=== PATIENT | female | born 1990 | race Native Hawaiian/Other Pacific Islander ===

== ENCOUNTER 2019-04-01 10:00 | Inpatient (IN) | payer MEDICAID ==
[~2019-04-01] VITALS: Ht 167.6 cm; Wt 78.0 kg
[2019-04-01] MEDS ORDERED: GABA-533 PO (10:07)
[2019-04-01] MEDS ORDERED: INSU100I24 SQ (10:07)
[2019-04-01] MEDS ORDERED: INSU100V SQ (10:07)
[2019-04-01 10:09] LABS: GLUCOSE,POINT OF CARE 152 MG/DL (70-110)
[2019-04-01 11:09] LABS: BASOPHILS % (AUTO) 0.4 % (0.0-2.0); EOSINOPHILS % (AUTO) 0.4 % (1.0-6.0); HEMATOCRIT 39.6 % (36-46); HEMOGLOBIN 12.9 g/dL (12.0-16.0); LYMPHOCYTES # (AUTO) 1.2 K/uL (1.0-4.8); LYMPHOCYTES % (AUTO) 19.5 % (22.0-44.0); MEAN CORPUSCULAR HEMOGLOBIN 25.3 pg (26.0-34.0); MEAN CORPUSCULAR HGB CONC 32.6 G/dL (31.0-37.0); MEAN CORPUSCULAR VOLUME 78 fL (80-100); MONOCYTES # (AUTO) 0.3 K/uL (0.1-1.0); MONOCYTES % (AUTO) 4.9 % (2.0-9.0); NEUTROPHILS # (AUTO) 4.5 K/uL (1.8-7.7); NEUTROPHILS % (AUTO) 74.8 % (40.0-70.0); PLATELET COUNT (AUTO) 173 K/uL (150-450); RED BLOOD CELL COUNT(AUTO) 5.09 MIL/uL (4.00-5.20); RED CELL DISTRIBUTION WIDTH 18.1 % (11.5-14.5)
[2019-04-01 11:15] LABS: ANION GAP 15 mmol/L (8-16); CALCIUM, TOTAL 9.4 mg/dL (8.8-10.5); CARBON DIOXIDE 19 mmol/L (22-29); CHLORIDE 100 mmol/L (98-107); CREATININE 0.94 mg/dL (0.60-1.30); GLOMERULAR FILTR. RATE CALC > 60 mL/min (>60); GLUCOSE,RANDOM 174 mg/dL (70-110); POTASSIUM 3.8 mmol/L (3.5-5.1); SODIUM SERUM 134 mmol/L (136-145); UREA NITROGEN, BLOOD 13 mg/dL (7-18)
[2019-04-01 11:27] LABS: ALANINE AMINOTRANSFERASE 25 U/L (12-78); ALBUMIN 3.6 g/dL (3.4-5.0); ALKALINE PHOSPHATASE 90 U/L (46-116); ASPARTATE AMINOTRANSFERASE 18 U/L (15-37); BILIRUBIN,TOTAL 0.3 mg/dL (0.1-1.0); HCG,QUANTITATIVE < 1 mIU/mL (0-6); LIPASE 45 U/L (73-393); TOTAL PROTEIN, SERUM 7.7 g/dL (6.4-8.2)
[2019-04-01] MEDS ORDERED: METOCLOPRAMIDE HCL 5 MG/ML 2 ML VIAL IVP ONE ×2 (11:30→17:45)
[2019-04-01] MEDS ORDERED: SODIUM CHLORIDE 0.9% 1,000 ML IV ONE ×2 (11:30→14:45)
[2019-04-01] MEDS ORDERED: HYOSCYAMINE SULFATE 0.125 MG TAB PO ONE (11:45)
[2019-04-01] MEDS ORDERED: ONDANSETRON HCL 4 MG/2 ML VIAL IVP ONE ×2 (11:45→14:45)
[2019-04-01] MEDS ORDERED: MORPHINE SULFATE 4 MG/ML SYRINGE IVP ONE ×2 (11:45→14:45)
[2019-04-01] MEDS ORDERED: BARIUM SULFATE 0.1% SUSPENSION 450 ML BOTTLE PO ONE (14:45)
[2019-04-01 15:09] LABS: GLUCOSE,POINT OF CARE 199 MG/DL (70-110)
[2019-04-01] MEDS ORDERED: SODIUM CHLORIDE 0.9% 100 ML ONE (15:13)
[2019-04-01] MEDS ORDERED: IOVERSOL 320 MG/ML 100 ML VIAL ONE (15:13)
[2019-04-01] MEDS ORDERED: ONDANSETRON HCL 4 MG/2 ML VIAL IVP PRN ×2 (17:45→21:00)
[2019-04-01] MEDS ORDERED: 0.9% SODIUM CHLORIDE 10 ML SYRINGE IVP PRN (17:45)
[2019-04-01] MEDS ORDERED: ACETAMINOPHEN 325 MG TABLET PO PRN ×2 (17:45→21:00)
[2019-04-01] MEDS ORDERED: HYDROmorphone 2 MG/ML SYRINGE IVP ONE (17:45)
[2019-04-01 18:49] VITALS: BP 115/66
[2019-04-01 20:07] VITALS: BP 119/76
[2019-04-01] MEDS ORDERED: ZOLPIDEM TARTRATE 5 MG TABLET PO PRN (21:00)
[2019-04-01] MEDS: DOCUSATE SODIUM 100 MG CAPSULE PO SCH (21:00)
[2019-04-01] MEDS ORDERED: IPRATROPIUM BROMIDE 0.5 MG/2.5 ML NEB SOLUTION NEB PRN (21:00)
[2019-04-01] MEDS ORDERED: INSULIN LISPRO 100 UNITS/ML SQ PRN (21:00)
[2019-04-01] MEDS ORDERED: ALBUTEROL SULFATE 2.5 MG/0.5 ML NEB SOLUTION NEB PRN (21:00)
[2019-04-01] MEDS ORDERED: HYDROCODONE/ACETAMINOPHEN 5-325 MG TABLET PO PRN (21:00)
[2019-04-01] MEDS ORDERED: MAGNESIUM HYDROXIDE SUSPENSION 30 ML UDCUP PO PRN (21:00)
[2019-04-01] MEDS ORDERED: DEXTROSE 50%-WATER 25 GM/50 ML SYRINGE IVP PRN (21:00)
[2019-04-01] MEDS ORDERED: SODIUM CHLORIDE 0.9% 1,000 ML IV SCH (21:00)
[2019-04-01] MEDS ORDERED: BISACODYL 10 MG RECTAL RECTAL SUPPOSITORY PR PRN (21:00)
[2019-04-01] MEDS: DiphenhydrAMINE HCL 50 MG/ML VIAL IVP PRN (21:23)
[2019-04-01] MEDS: MORPHINE SULFATE 2 MG/ML SYRINGE IVP PRN (21:23)
[2019-04-01] MEDS: SODIUM CHLORIDE 0.9% 1,000 ML IV SCH (21:23)
[2019-04-01 21:33] LABS: GLUCOMETER DEV NAME(LOC) 5N.2; GLUCOSE,POINT OF CARE 217 MG/DL (70-110)
[2019-04-01 22:47] LABS: ANION GAP 18 mmol/L (8-16); CALCIUM, TOTAL 8.5 mg/dL (8.8-10.5); CARBON DIOXIDE 18 mmol/L (22-29); CHLORIDE 104 mmol/L (98-107); CREATININE 0.85 mg/dL (0.60-1.30); GLOMERULAR FILTR. RATE CALC > 60 mL/min (>60); GLUCOSE,RANDOM 191 mg/dL (70-110); PHOSPHORUS 2.5 mg/dL (2.5-4.9); POTASSIUM 3.8 mmol/L (3.5-5.1); SODIUM SERUM 140 mmol/L (136-145)
[2019-04-01 23:00] LABS: UREA NITROGEN, BLOOD 8 mg/dL (7-18)
[2019-04-01] MEDS: HEPARIN SODIUM,PORCINE 5,000 UNITS/ML VIAL SQ SCH (23:47)
[2019-04-01 23:51] VITALS: BP 120/78
[2019-04-02] MEDS ORDERED: MAGNESIUM SULFATE 4 GM/WATER 100 ML IV PRN
[2019-04-02] MEDS ORDERED: POTASSIUM CHLORIDE 20 MEQ ER TABLET PO PRN
[2019-04-02] MEDS ORDERED: MAGNESIUM OXIDE 400 MG TABLET PO PRN
[2019-04-02] MEDS ORDERED: DEXTROSE 50%-WATER 25 GM/50 ML SYRINGE IVP PRN
[2019-04-02] MEDS ORDERED: MAGNESIUM SULFATE 2 GM/WATER 50 ML IV PRN
[2019-04-02 00:04] LABS: GLUCOMETER DEV NAME(LOC) 5N.2; GLUCOSE,POINT OF CARE 159 MG/DL (70-110)
[2019-04-02] MEDS: MORPHINE SULFATE 2 MG/ML SYRINGE IVP PRN ×7 (00:07→21:44)
[2019-04-02] MEDS: INSULIN LISPRO 100 UNITS/ML SQ PRN ×3 (00:08→17:55)
[2019-04-02 00:29] LABS: ALBUMIN 3.4 g/dL (3.4-5.0)
[2019-04-02] MEDS: ONDANSETRON HCL 4 MG/2 ML VIAL IVP PRN ×4 (01:51→14:10)
[2019-04-02] MEDS: DiphenhydrAMINE HCL 50 MG/ML VIAL IVP PRN ×4 (01:52→14:10)
[2019-04-02] MEDS: SODIUM CHLORIDE 0.9% 1,000 ML IV SCH ×4 (03:18→18:03)
[2019-04-02 05:27] VITALS: BP 123/76
[2019-04-02 06:18] LABS: ANION GAP 18 mmol/L (8-16); CALCIUM, TOTAL 8.5 mg/dL (8.8-10.5); CARBON DIOXIDE 18 mmol/L (22-29); CHLORIDE 103 mmol/L (98-107); CREATININE 0.81 mg/dL (0.60-1.30); GLOMERULAR FILTR. RATE CALC > 60 mL/min (>60); GLUCOSE,RANDOM 138 mg/dL (70-110); POTASSIUM 3.1 mmol/L (3.5-5.1); SODIUM SERUM 139 mmol/L (136-145); UREA NITROGEN, BLOOD 7 mg/dL (7-18)
[2019-04-02 07:10] LABS: GLUCOMETER DEV NAME(LOC) 5N.2; GLUCOSE,POINT OF CARE 109 MG/DL (70-110)
[2019-04-02 07:37] VITALS: BP 132/82
[2019-04-02] MEDS: GABAPENTIN 400 MG CAPSULE PO SCH ×3 (07:59→21:04)
[2019-04-02] MEDS: HEPARIN SODIUM,PORCINE 5,000 UNITS/ML VIAL SQ SCH ×3 (07:59→23:45)
[2019-04-02] MEDS: DOCUSATE SODIUM 100 MG CAPSULE PO SCH ×2 (07:59→21:03)
[2019-04-02] MEDS ORDERED: INSULIN DEGLUDEC SQ SCH (09:00)
[2019-04-02] MEDS ORDERED: METOCLOPRAMIDE HCL 5 MG/ML 2 ML VIAL IVP PRN (09:15)
[2019-04-02] MEDS: MetroNIDAZOLE 500 MG/NACL 100 ML IV SCH ×2 (11:08→16:38)
[2019-04-02] MEDS: POTASSIUM CHL 10 MEQ/WATER 50 ML IV PRN ×3 (11:08→13:46)
[2019-04-02] MEDS: CefTRIAXone 1 GM/DEXTROSE 50 ML IV SCH (11:08)
[2019-04-02] MEDS: METOCLOPRAMIDE HCL 5 MG/ML 2 ML VIAL IVP SCH ×3 (11:35→23:45)
[2019-04-02 11:50] VITALS: BP 161/108
[2019-04-02 12:29] LABS: GLUCOMETER DEV NAME(LOC) 5N.2; GLUCOSE,POINT OF CARE 337 MG/DL (70-110)
[2019-04-02 15:19] LABS: ANION GAP 15 mmol/L (8-16); CALCIUM, TOTAL 7.9 mg/dL (8.8-10.5); CARBON DIOXIDE 17 mmol/L (22-29); CHLORIDE 106 mmol/L (98-107); CREATININE 0.77 mg/dL (0.60-1.30); GLOMERULAR FILTR. RATE CALC > 60 mL/min (>60); GLUCOSE,RANDOM 183 mg/dL (70-110); POTASSIUM 3.5 mmol/L (3.5-5.1); SODIUM SERUM 138 mmol/L (136-145); UREA NITROGEN, BLOOD 6 mg/dL (7-18)
[2019-04-02 15:55] VITALS: BP 125/76
[2019-04-02 20:18] VITALS: BP 109/72
[2019-04-03 00:14] VITALS: BP 127/88
[2019-04-03] MEDS: MORPHINE SULFATE 2 MG/ML SYRINGE IVP PRN ×5 (01:49→20:28)
[2019-04-03] MEDS: MetroNIDAZOLE 500 MG/NACL 100 ML IV SCH ×3 (01:49→17:19)
[2019-04-03] MEDS: SODIUM CHLORIDE 0.9% 1,000 ML IV SCH ×4 (01:51→21:06)
[2019-04-03] MEDS: INSULIN LISPRO 100 UNITS/ML SQ PRN ×4 (01:51→21:52)
[2019-04-03 05:37] VITALS: BP 105/58
[2019-04-03] MEDS: METOCLOPRAMIDE HCL 5 MG/ML 2 ML VIAL IVP SCH ×4 (06:19→23:23)
[2019-04-03 06:44] LABS: BASOPHILS % (AUTO) 0.9 % (0.0-2.0); EOSINOPHILS % (AUTO) 0.7 % (1.0-6.0); HEMATOCRIT 32.8 % (36-46); HEMOGLOBIN 10.5 g/dL (12.0-16.0); LYMPHOCYTES # (AUTO) 1.9 K/uL (1.0-4.8); LYMPHOCYTES % (AUTO) 43.3 % (22.0-44.0); MEAN CORPUSCULAR HEMOGLOBIN 25.2 pg (26.0-34.0); MEAN CORPUSCULAR HGB CONC 32.1 G/dL (31.0-37.0); MEAN CORPUSCULAR VOLUME 79 fL (80-100); MONOCYTES # (AUTO) 0.4 K/uL (0.1-1.0); MONOCYTES % (AUTO) 9.3 % (2.0-9.0); NEUTROPHILS % (AUTO) 45.8 % (40.0-70.0); PLATELET COUNT (AUTO) 174 K/uL (150-450); RED BLOOD CELL COUNT(AUTO) 4.18 MIL/uL (4.00-5.20); RED CELL DISTRIBUTION WIDTH 18.8 % (11.5-14.5)
[2019-04-03 07:01] LABS: % IRON SATURATION 22.4 % (22-44); IRON, SERUM 63 mcg/dL (50-175); TOTAL IRON BINDING CAPACITY 281 mcg/dL (250-450)
[2019-04-03 07:05] LABS: GLUCOMETER DEV NAME(LOC) 5N.2; GLUCOSE,POINT OF CARE 159 MG/DL (70-110)
[2019-04-03 07:05] LABS: GLUCOMETER DEV NAME(LOC) 5N.2; GLUCOSE,POINT OF CARE 152 MG/DL (70-110)
[2019-04-03 07:05] LABS: GLUCOMETER DEV NAME(LOC) 5N.2; GLUCOSE,POINT OF CARE 97 MG/DL (70-110)
[2019-04-03 07:10] LABS: ALANINE AMINOTRANSFERASE 17 U/L (12-78); ALBUMIN 2.5 g/dL (3.4-5.0); ALKALINE PHOSPHATASE 59 U/L (46-116); ANION GAP 11 mmol/L (8-16); ASPARTATE AMINOTRANSFERASE 14 U/L (15-37); BILIRUBIN,TOTAL 0.3 mg/dL (0.1-1.0); CALCIUM, TOTAL 7.1 mg/dL (8.8-10.5); CARBON DIOXIDE 21 mmol/L (22-29); CHLORIDE 104 mmol/L (98-107); CHOL/HDL RATIO 3.4 (3.9-5.7); CHOLESTEROL 154 mg/dL (131-200); CREATININE 0.69 mg/dL (0.60-1.30); FERRITIN 17 ng/mL (8-252); GLOMERULAR FILTR. RATE CALC > 60 mL/min (>60); GLUCOSE,RANDOM 124 mg/dL (70-110); HDL CHOLESTEROL 45 mg/dL (40-60); LDL CHOL (CALC.) 90 mg/dL (0-130); SODIUM SERUM 136 mmol/L (136-145); THYROID STIMULATING HORMONE 0.93 uIU/mL (0.36-3.74); TOTAL PROTEIN, SERUM 5.5 g/dL (6.4-8.2); TRIGLYCERIDES 94 mg/dL (15-150)
[2019-04-03 07:13] LABS: POTASSIUM 2.8 mmol/L (3.5-5.1)
[2019-04-03 07:16] LABS: UREA NITROGEN, BLOOD 5 mg/dL (7-18)
[2019-04-03 07:25] VITALS: BP 113/71
[2019-04-03] MEDS: POTASSIUM CHL 10 MEQ/WATER 50 ML IV PRN ×5 (10:16→14:02)
[2019-04-03] MEDS ORDERED: SODIUM CHLORIDE 0.9% 500 ML IV ONE ×2 (10:17→12:48)
[2019-04-03] MEDS: HEPARIN SODIUM,PORCINE 5,000 UNITS/ML VIAL SQ SCH ×3 (10:18→23:23)
[2019-04-03] MEDS: DOCUSATE SODIUM 100 MG CAPSULE PO SCH ×2 (10:18→20:27)
[2019-04-03] MEDS: GABAPENTIN 400 MG CAPSULE PO SCH ×3 (10:19→20:28)
[2019-04-03] MEDS: CefTRIAXone 1 GM/DEXTROSE 50 ML IV SCH (10:47)
[2019-04-03 11:19] VITALS: BP 125/88
[2019-04-03 15:10] VITALS: BP 128/88
[2019-04-03 21:16] VITALS: BP 143/99
[2019-04-03 23:00] LABS: GLUCOMETER DEV NAME(LOC) 5N.2; GLUCOSE,POINT OF CARE 178 MG/DL (70-110)
[2019-04-03 23:00] LABS: GLUCOMETER DEV NAME(LOC) 5N.2; GLUCOSE,POINT OF CARE 115 MG/DL (70-110)
[2019-04-03 23:00] LABS: GLUCOMETER DEV NAME(LOC) 5S.1; GLUCOSE,POINT OF CARE 183 MG/DL (70-110)
[2019-04-03] MEDS: DiphenhydrAMINE HCL 50 MG/ML VIAL IVP PRN (23:23)
[2019-04-04 00:07] VITALS: BP 127/81
[2019-04-04] MEDS: MetroNIDAZOLE 500 MG/NACL 100 ML IV SCH ×2 (01:21→08:54)
[2019-04-04] MEDS: MORPHINE SULFATE 2 MG/ML SYRINGE IVP PRN (01:24)
[2019-04-04 05:07] VITALS: BP 123/78
[2019-04-04] MEDS: METOCLOPRAMIDE HCL 5 MG/ML 2 ML VIAL IVP SCH ×2 (05:14→10:57)
[2019-04-04] MEDS: SODIUM CHLORIDE 0.9% 1,000 ML IV SCH (05:16)
[2019-04-04] MEDS: INSULIN LISPRO 100 UNITS/ML SQ PRN ×3 (05:21→11:07)
[2019-04-04 06:14] LABS: GLUCOMETER DEV NAME(LOC) 5S.1; GLUCOSE,POINT OF CARE 220 MG/DL (70-110)
[2019-04-04 06:53] LABS: BASOPHILS % (AUTO) 1.1 % (0.0-2.0); EOSINOPHILS % (AUTO) 2.9 % (1.0-6.0); HEMATOCRIT 34.6 % (36-46); HEMOGLOBIN 11.3 g/dL (12.0-16.0); LYMPHOCYTES # (AUTO) 1.5 K/uL (1.0-4.8); LYMPHOCYTES % (AUTO) 44.9 % (22.0-44.0); MEAN CORPUSCULAR HEMOGLOBIN 25.4 pg (26.0-34.0); MEAN CORPUSCULAR HGB CONC 32.5 G/dL (31.0-37.0); MEAN CORPUSCULAR VOLUME 78 fL (80-100); MONOCYTES # (AUTO) 0.3 K/uL (0.1-1.0); MONOCYTES % (AUTO) 9.7 % (2.0-9.0); NEUTROPHILS # (AUTO) 1.4 K/uL (1.8-7.7); NEUTROPHILS % (AUTO) 41.4 % (40.0-70.0); PLATELET COUNT (AUTO) 160 K/uL (150-450); RED BLOOD CELL COUNT(AUTO) 4.44 MIL/uL (4.00-5.20)
[2019-04-04 07:15] VITALS: BP 113/82
[2019-04-04 07:20] LABS: ALANINE AMINOTRANSFERASE 16 U/L (12-78); ALBUMIN 2.4 g/dL (3.4-5.0); ALKALINE PHOSPHATASE 61 U/L (46-116); ANION GAP 9 mmol/L (8-16); ASPARTATE AMINOTRANSFERASE 18 U/L (15-37); BILIRUBIN,TOTAL 0.3 mg/dL (0.1-1.0); CARBON DIOXIDE 22 mmol/L (22-29); CHLORIDE 104 mmol/L (98-107); CREATININE 0.61 mg/dL (0.60-1.30); GLOMERULAR FILTR. RATE CALC > 60 mL/min (>60); GLUCOSE,RANDOM 206 mg/dL (70-110); SODIUM SERUM 135 mmol/L (136-145); TOTAL PROTEIN, SERUM 5.4 g/dL (6.4-8.2)
[2019-04-04 07:28] LABS: UREA NITROGEN, BLOOD 3 mg/dL (7-18)
[2019-04-04] MEDS: GABAPENTIN 400 MG CAPSULE PO SCH (08:10)
[2019-04-04] MEDS: HEPARIN SODIUM,PORCINE 5,000 UNITS/ML VIAL SQ SCH (08:10)
[2019-04-04] MEDS: DOCUSATE SODIUM 100 MG CAPSULE PO SCH (08:10)
[2019-04-04] MEDS: CefTRIAXone 1 GM/DEXTROSE 50 ML IV SCH (08:11)
[2019-04-04] MEDS ORDERED: NON FORMULARY MEDICATION - MISC UNIT SQ SCH (09:00)
[2019-04-04] MEDS ORDERED: POTASSIUM CHLORIDE 20 MEQ ER TABLET PO ONE (11:00)
[2019-04-04] MEDS ORDERED: MAGNESIUM OXIDE 400 MG TABLET PO ONE (11:00)
[2019-04-04] MEDS ORDERED: METR500 PO (11:16)
[2019-04-04] MEDS ORDERED: METO-296 PO (11:16)
[2019-04-04] MEDS ORDERED: lactobacillus PO (11:16)
[2019-04-04] MEDS ORDERED: CEPH500 PO (11:16)
[2019-04-04 12:50] LABS: GLUCOMETER DEV NAME(LOC) 5S.1; GLUCOSE,POINT OF CARE 133 MG/DL (70-110)
[2019-04-04 12:50] LABS: GLUCOMETER DEV NAME(LOC) 5S.1; GLUCOSE,POINT OF CARE 129 MG/DL (70-110)
== END 2019-04-04 11:30 | disposition home or self-care (01) | DRG 48 ==
LOC: EMS 10:01 → 4E 18:00
PROVIDERS: ADMIT Hospitalist; ATTEND Hospitalist
DX: E10.43 Type 1 diabetes mellitus with diabetic autonomic (poly)neuropathy (principal); E87.1 Hypo-osmolality and hyponatremia; E10.10 Type 1 diabetes mellitus with ketoacidosis without coma; K31.84 Gastroparesis; D50.9 Iron deficiency anemia, unspecified; E87.6 Hypokalemia; K52.9 Noninfective gastroenteritis and colitis, unspecified; Z79.4 Long term (current) use of insulin; Z83.3 Family history of diabetes mellitus; Z87.891 Personal history of nicotine dependence
CPT/HCPCS: 74177; 82728; 83036; 83540; 83550; 83735; 84100; 84132; 84145; 84439; 84443; 96361; 96374; 96375; G0378; J0696; J1170; J1200; J1644; J2270; J2405; J2765; J3475; J3480; J3490; J7030; J7040; J7050